=== PATIENT | male | born 1975 | race Caucasian/White ===

== ENCOUNTER 2019-12-05 10:37 | Day surgery (SDC) | payer OTHER ==
[~2019-12-05] VITALS: Ht 175.3 cm; Wt 93.4 kg
[2019-12-05] MEDS ORDERED: fentaNYL 0.05 MG/ML VIAL ONE (11:59)
[2019-12-05] MEDS ORDERED: LIDOCAINE 2% 100 MG/5 ML UJET TP ONE (11:59)
[2019-12-05] MEDS ORDERED: fentaNYL 0.05 MG/ML VIAL IVP ONE (12:30)
== END 2019-12-05 13:21 | disposition home or self-care (01) ==
LOC: MDS 10:37 → MMU 10:37 → MDS 13:21
PROVIDERS: ATTEND Internal Medicine Gastroenterology
DX: K62.5 Hemorrhage of anus and rectum (principal); D12.8 Benign neoplasm of rectum; D12.3 Benign neoplasm of transverse colon; D12.5 Benign neoplasm of sigmoid colon; K57.30 Diverticulosis of large intestine without perforation or abscess without bleeding; K64.8 Other hemorrhoids
CPT/HCPCS: 45385; J3010